=== PATIENT | female | born 1985 | race African-American/Black ===

== ENCOUNTER 2021-09-16 09:04 | Observation (INO) | payer OTHER ==
[~2021-09-16] VITALS: Ht 167.6 cm; Wt 95.3 kg
[2021-09-16] MEDS ORDERED: LABETALOL HCL 200MG TABLET PO SCH (14:00)
[2021-09-16] MEDS ORDERED: RHO(D) IMMUNE GLOBULIN 300 MCG/SYR IM ONE (16:00)
[2021-09-16] MEDS: LABETALOL HCL 200MG TABLET PO SCH (18:09)
[2021-09-16 18:20] LABS: BASOPHILS % 0.2 % (0.0-2.0); HEMATOCRIT. 39.4 % (36.0-48.0); HEMOGLOBIN. 13.2 g/dL (12.0-16.0); LYMPHOCYTES % 22.7 % (20.0-50.0); MEAN CORPUSCULAR HEMOGLOBIN 30.9 pg (28.0-32.0); MEAN CORPUSCULAR VOLUME 92.7 fL (81.0-99.0); MEAN PLATELET VOLUME 10.9 fl (7.4-10.4); MONOCYTES % 7.6 % (2.0-8.0); NEUTROPHILS % 68.5 % (40.0-76.0); PLATELET 209 x1000/uL (130-400); RED BLOOD CELL COUNT 4.25 mill/uL (4.2-5.4); RED CELL DISTRIBUTION WIDTH 13.5 % (11.6-14.6)
[2021-09-16 18:31] LABS: CLARITY URINE CLOUDY (CLEAR); COLOR URINE YELLOW (YELLOW); KETONES URINE NEGATIVE (NEGATIVE); LEUKOCYTE ESTERASE URINE TRACE (NEGATIVE); NITRITE URINE NEGATIVE (NEGATIVE); OCCULT BLOOD URINE NEGATIVE (NEGATIVE); PH URINE 6.5 (4.5-8.0); PROTEIN URINE 2+ (NEGATIVE); SPECIFIC GRAVITY URINE 1.006 (1.005-1.030); UROBILINOGEN URINE 0.2 E.U./dL (0.2-1.0)
[2021-09-16 18:44] LABS: *AMPHETAMINES SCREEN URINE NEGATIVE (NEGATIVE); *BARBITURATES SCREEN URINE NEGATIVE (NEGATIVE); *BENZODIAZEPINES SCREEN URINE NEGATIVE (NEGATIVE); *COCAINE SCREEN URINE NEGATIVE (NEGATIVE); CANNABINOID URINE SCREEN NEGATIVE (NEGATIVE); METHADONE URINE SCREEN NEGATIVE (NEGATIVE); OPIATES URINE SCREEN NEGATIVE (NEGATIVE); PHENCYCLIDINE URINE SCREEN NEGATIVE (NEGATIVE)
[2021-09-16 18:56] LABS: HEPATITIS B SURFACE ANTIGEN NEGATIVE
[2021-09-16 20:44] LABS: INR 0.9; PARTIAL THROMBOPLASTIN TIME 26.8 sec (23.4-31.0); PROTHROMBIN TIME 9.6 sec (9.6-11.0)
[2021-09-17] MEDS: LABETALOL HCL 200MG TABLET PO SCH ×2 (02:03→09:33)
[2021-09-17] MEDS ORDERED: DEXTROSE 50% WATER 50ML SYRINGE IV PRN (07:45)
[2021-09-17] MEDS ORDERED: METFORMIN HCL 500MG TABLET PO SCH (09:00)
[2021-09-17] MEDS ORDERED: BLOOD SUGAR DIAGNOSTIC STRIP TEST SCH (09:00)
[2021-09-17] MEDS ORDERED: INSULIN LISPRO 100 UNITS/ML SUBCUT SCH (09:00)
[2021-09-17] MEDS ORDERED: METF-414 PO (14:44)
[2021-09-17] MEDS ORDERED: LABE200T9 PO (14:44)
== END 2021-09-17 19:18 | disposition home or self-care (01) ==
LOC: 8 EST LDRP 09:04
PROVIDERS: ADMIT Obstetrics & Gynecology; ATTEND Obstetrics & Gynecology
DX: O09.513 Supervision of elderly primigravida, third trimester (principal); O09.33 Supervision of pregnancy with insufficient antenatal care, third trimester; O16.3 Unspecified maternal hypertension, third trimester; O26.893 Other specified pregnancy related conditions, third trimester; R10.9 Unspecified abdominal pain; Z3A.33 33 weeks gestation of pregnancy; Z79.899 Other long term (current) drug therapy
CPT/HCPCS: 36415; 59025; 76805; 76818; 80305; 81003; 82962; 83036; 85025; 85610; 85730; 86592; 86703; 86762; 86850; 86900; 86901; 87340; 96372; G0378; J1815; 99281

== ENCOUNTER 2021-10-16 17:29 | Inpatient (IN) | payer MEDICAID, OTHER ==
[~2021-10-16] VITALS: Ht 154.9 cm; Wt 91.2 kg
[~2021-10-16 17:29] MED LIST: LABE200T9 PO; METF-414 PO
[2021-10-16] MEDS ORDERED: NALOXONE HCL 0.4 MG/ML 1ML VIAL IM PRN (19:15)
[2021-10-16] MEDS ORDERED: CARBOPROST TROMETHAMINE 250 MCG/ML AMPUL IM PRN (19:15)
[2021-10-16] MEDS ORDERED: METHYLERGONOVINE MALEATE 0.2 MG/ML IM PRN (19:15)
[2021-10-16] MEDS ORDERED: RHO(D) IMMUNE GLOBULIN 300 MCG/SYR IM NR (19:15)
[2021-10-16] MEDS ORDERED: OXYTOCIN 30 UNITS/500ML NS PMX 500 ML IV SCH (19:45)
[2021-10-16] MEDS ORDERED: MAGNESIUM 4 G PREMIX 100 ML IV NR (22:00)
[2021-10-16] MEDS ORDERED: DEXTROSE 50% WATER 50ML SYRINGE IV PRN (22:00)
[2021-10-16] MEDS ORDERED: LABETALOL HCL 5MG/ML VIAL 20ML IV PRN ×3 (22:00)
[2021-10-16] MEDS ORDERED: HYDRALAZINE 20MG/ML VIAL IV PRN (22:00)
[2021-10-16 22:29] LABS: BASOPHILS % 0.3 % (0.0-2.0); EOSINOPHILS % 1.5 % (0.0-5.0); HEMATOCRIT. 35.6 % (36.0-48.0); HEMOGLOBIN. 11.8 g/dL (12.0-16.0); LYMPHOCYTES % 17.9 % (20.0-50.0); MEAN CORPUSCULAR HEMOGLOBIN 30.8 pg (28.0-32.0); MEAN CORPUSCULAR VOLUME 93.1 fL (81.0-99.0); MEAN PLATELET VOLUME 10.2 fl (7.4-10.4); MONOCYTES % 7.1 % (2.0-8.0); NEUTROPHILS % 73.2 % (40.0-76.0); PLATELET 266 x1000/uL (130-400); RED BLOOD CELL COUNT 3.83 mill/uL (4.2-5.4); RED CELL DISTRIBUTION WIDTH 13.9 % (11.6-14.6)
[2021-10-16 22:42] LABS: INR 0.9; PARTIAL THROMBOPLASTIN TIME 27.6 sec (23.4-31.0); PROTHROMBIN TIME 9.7 sec (9.6-11.0)
[2021-10-16 23:01] LABS: CHLORIDE 103 mEq/L (98-107)
[2021-10-16 23:06] LABS: HEPATITIS B SURFACE ANTIGEN NEGATIVE
[2021-10-16 23:16] LABS: CLARITY URINE CLEAR (CLEAR); COLOR URINE YELLOW (YELLOW); KETONES URINE NEGATIVE (NEGATIVE); LEUKOCYTE ESTERASE URINE NEGATIVE (NEGATIVE); NITRITE URINE NEGATIVE (NEGATIVE); OCCULT BLOOD URINE TRACE (NEGATIVE); PROTEIN URINE 3+ (NEGATIVE); SPECIFIC GRAVITY URINE 1.017 (1.005-1.030)
[2021-10-16 23:31] LABS: *AMPHETAMINES SCREEN URINE NEGATIVE (NEGATIVE); *BARBITURATES SCREEN URINE NEGATIVE (NEGATIVE); *BENZODIAZEPINES SCREEN URINE NEGATIVE (NEGATIVE); *COCAINE SCREEN URINE NEGATIVE (NEGATIVE); CANNABINOID URINE SCREEN NEGATIVE (NEGATIVE); METHADONE URINE SCREEN NEGATIVE (NEGATIVE); OPIATES URINE SCREEN NEGATIVE (NEGATIVE); PHENCYCLIDINE URINE SCREEN NEGATIVE (NEGATIVE)
[2021-10-16] MEDS: MAGNESIUM 20 G PREMIX (L & D) 500 ML IV SCH (23:42)
[2021-10-16] MEDS: LACTATED RINGERS 1,000 ML IV SCH (23:45)
[2021-10-17] MEDS ORDERED: LABETALOL HCL 5MG/ML VIAL 20ML IV PRN (01:00)
[2021-10-17] MEDS: LACTATED RINGERS 1,000 ML IV SCH ×2 (02:37→14:40)
[2021-10-17] MEDS: INSULIN LISPRO 100 UNITS/ML SUBCUT SCH (06:14)
[2021-10-17] MEDS: LABETALOL HCL 200MG TABLET PO SCH ×2 (06:57→20:00)
[2021-10-17 08:11] LABS: CHLORIDE 102 mEq/L (98-107)
[2021-10-17 08:15] LABS: BASOPHILS % 0.1 % (0.0-2.0); EOSINOPHILS % 1.8 % (0.0-5.0); HEMATOCRIT. 35.2 % (36.0-48.0); HEMOGLOBIN. 11.9 g/dL (12.0-16.0); LYMPHOCYTES % 18.4 % (20.0-50.0); MEAN CORPUSCULAR HEMOGLOBIN 31.2 pg (28.0-32.0); MEAN CORPUSCULAR VOLUME 92.2 fL (81.0-99.0); MEAN PLATELET VOLUME 10.3 fl (7.4-10.4); NEUTROPHILS % 72.7 % (40.0-76.0); PLATELET 271 x1000/uL (130-400); RED BLOOD CELL COUNT 3.81 mill/uL (4.2-5.4); RED CELL DISTRIBUTION WIDTH 13.7 % (11.6-14.6)
[2021-10-17] MEDS ORDERED: BLOOD SUGAR DIAGNOSTIC STRIP TEST SCH (09:00)
[2021-10-17] MEDS ORDERED: CITRIC ACID/SODIUM CITRATE SOLN 30ML UDC PO NR (09:30)
[2021-10-17 10:22] LABS: D-DIMER 9.47 mg/L FEU (<0.50); INR 0.9; PARTIAL THROMBOPLASTIN TIME 26.1 sec (23.4-31.0); PROTHROMBIN TIME 9.3 sec (9.6-11.0)
[2021-10-17 10:36] LABS: CLARITY URINE CLEAR (CLEAR); COLOR URINE YELLOW (YELLOW); KETONES URINE NEGATIVE (NEGATIVE); LEUKOCYTE ESTERASE URINE NEGATIVE (NEGATIVE); NITRITE URINE NEGATIVE (NEGATIVE); OCCULT BLOOD URINE NEGATIVE (NEGATIVE); PH URINE 6.5 (4.5-8.0); PROTEIN URINE 2+ (NEGATIVE); SPECIFIC GRAVITY URINE 1.014 (1.005-1.030); UROBILINOGEN URINE 0.2 E.U./dL (0.2-1.0)
[2021-10-17] MEDS: MAGNESIUM 20 G PREMIX (L & D) 500 ML IV SCH (11:13)
[2021-10-17] MEDS ORDERED: MIDAZOLAM HCL 2 MG/2 ML VIAL ONE ×2 (12:22→12:35)
[2021-10-17] MEDS ORDERED: FENTANYL CITRATE/PF 50MCG/ML 2ML VIAL ONE (12:23)
[2021-10-17] MEDS ORDERED: MORPHINE SULFATE/PF 1MG/ML 10ML AMP ONE (12:23)
[2021-10-17] MEDS ORDERED: CLINDAMYCIN 900 MG PREMIX 50 ML IV ONE (12:26)
[2021-10-17] MEDS ORDERED: PROPOFOL 200MG/20ML VIAL IV ONE (12:29)
[2021-10-17] MEDS ORDERED: OXYTOCIN 10 UNITS/ML 1ML ONE ×3 (13:13→13:31)
[2021-10-17] MEDS ORDERED: ONDANSETRON HCL 4MG/2ML INJ ONE (13:31)
[2021-10-17] MEDS ORDERED: LANOLIN OINT 7GM TUBE TOP PRN ×2 (14:00→14:15)
[2021-10-17] MEDS ORDERED: RHO(D) IMMUNE GLOBULIN 300 MCG/SYR IM PRN ×2 (14:00→14:15)
[2021-10-17] MEDS ORDERED: IBUPROFEN 400MG TABLET PO PRN ×2 (14:00→14:15)
[2021-10-17] MEDS ORDERED: ONDANSETRON HCL 4MG/2ML INJ IV PRN ×2 (14:00→14:15)
[2021-10-17] MEDS ORDERED: DIPHENHYDRAMINE 25MG CAPSULE PO PRN ×2 (14:00→21:00)
[2021-10-17] MEDS ORDERED: OXYTOCIN 30 UNITS/500ML NS PMX 500 ML IV SCH ×2 (14:00→14:15)
[2021-10-17] MEDS ORDERED: BISACODYL 10MG SUPP PR PRN ×2 (14:00→14:15)
[2021-10-17] MEDS ORDERED: IBUPROFEN 800MG TABLET PO PRN (14:00)
[2021-10-17] MEDS ORDERED: MAGNESIUM 20 G PREMIX (L & D) 500 ML IV SCH ×2 (14:00→14:15)
[2021-10-17] MEDS ORDERED: HEMORRHOIDAL SUPP PR PRN ×2 (14:00→14:15)
[2021-10-17] MEDS ORDERED: ACETAMINOPHEN WITH CODEINE 300/30MG TABLET PO PRN (14:00)
[2021-10-17] MEDS ORDERED: EPHEDRINE SULFATE 50MG/ML VIAL ONE (14:03)
[2021-10-17] MEDS ORDERED: HYDROCODONE/ACETAMINOPHEN 5/325MG TABLET PO PRN (14:15)
[2021-10-17] MEDS ORDERED: NALOXONE HCL 0.4MG/ML VIAL IV PRN (14:15)
[2021-10-17] MEDS ORDERED: DEXT 5%/LACTATED RINGERS 1,000 ML IV SCH (14:15)
[2021-10-17] MEDS ORDERED: NALOXONE HCL 0.4 MG/ML 1ML VIAL IV PRN (14:30)
[2021-10-17] MEDS ORDERED: DIPHENHYDRAMINE 50MG/ML VIAL IV PRN (14:30)
[2021-10-17] MEDS ORDERED: BUTORPHANOL TARTRATE 2 MG/ML VIAL IV PRN ×2 (14:30→18:15)
[2021-10-17] MEDS: ALBUTEROL 6.7GM HFA INHALER INH PRN (16:49)
[2021-10-17] MEDS ORDERED: MAGNESIUM/ALUMINUM HYDROXIDE/SIMETHICONE 30ML UDC PO SCH (17:00)
[2021-10-17] MEDS ORDERED: SIMETHICONE 80MG TABLET CHEW PO SCH (17:00)
[2021-10-17 17:50] VITALS: BP 124/86
[2021-10-17] MEDS ORDERED: HYDROMORPHONE HCL/PF 2MG/ML CPJ IV PRN (19:15)
[2021-10-17 19:30] VITALS: BP 169/118
[2021-10-17] MEDS ORDERED: DOCUSATE SODIUM 100MG CAPSULE PO SCH ×2 (21:00)
[2021-10-18] VITALS (7 sets, daily range): BP systolic 81–129; BP diastolic 44–78
[2021-10-18 03:55] LABS: BASOPHILS % 0.3 % (0.0-2.0); EOSINOPHILS % 0.3 % (0.0-5.0); HEMATOCRIT. 33.4 % (36.0-48.0); HEMOGLOBIN. 11.2 g/dL (12.0-16.0); LYMPHOCYTES % 7.7 % (20.0-50.0); MEAN CORPUSCULAR HEMOGLOBIN 30.9 pg (28.0-32.0); MEAN CORPUSCULAR VOLUME 92.5 fL (81.0-99.0); MEAN PLATELET VOLUME 9.6 fl (7.4-10.4); MONOCYTES % 5.6 % (2.0-8.0); NEUTROPHILS % 86.1 % (40.0-76.0); PLATELET 277 x1000/uL (130-400); RED BLOOD CELL COUNT 3.61 mill/uL (4.2-5.4); RED CELL DISTRIBUTION WIDTH 14.4 % (11.6-14.6)
[2021-10-18] MEDS: LABETALOL HCL 200MG TABLET PO SCH ×4 (04:00→20:33)
[2021-10-18] MEDS: FERROUS SULFATE 325MG TABLET PO SCH ×3 (09:00→17:00)
[2021-10-18] MEDS ORDERED: PRENATAL VIT/FE FUMARATE/FA TABLET PO SCH ×2 (09:00)
[2021-10-18] MEDS ORDERED: FERROUS SULFATE 325MG TABLET PO SCH (09:00)
[2021-10-18] MEDS: LACTATED RINGERS 1,000 ML IV SCH (10:13)
[2021-10-18] MEDS: SIMETHICONE 80MG TABLET CHEW PO SCH ×2 (13:00→17:00)
[2021-10-18] MEDS: MAGNESIUM/ALUMINUM HYDROXIDE/SIMETHICONE 30ML UDC PO SCH ×3 (13:00→20:32)
[2021-10-18] MEDS: ALBUTEROL 6.7GM HFA INHALER INH PRN (14:21)
[2021-10-18] MEDS ORDERED: ALBUTEROL (0.5%) 2.5MG/0.5ML NEB HHN PRN (16:15)
[2021-10-18] MEDS: INSULIN LISPRO 100 UNITS/ML SUBCUT SCH (16:30)
[2021-10-18] MEDS: IBUPROFEN 800MG TABLET PO PRN (20:32)
[2021-10-19 04:00] VITALS: BP 131/87
[2021-10-19] MEDS: LABETALOL HCL 200MG TABLET PO SCH (04:00)
[2021-10-19] MEDS: IBUPROFEN 800MG TABLET PO PRN (06:55)
[2021-10-19 08:00] VITALS: BP 119/72
== END 2021-10-19 10:50 | disposition left against medical advice (07) | DRG 540 ==
LOC: 8 EST LDRP 17:29 → OBSVTOIN 17:29 → 8 EST A/PP 10-17 18:08
PROVIDERS: ADMIT Specialist; ATTEND Obstetrics & Gynecology
PROC: 10D00Z1 Extraction of Products of Conception, Low, Open Approach (ICD-10-PCS; principal; 2021-10-17)
DX: O36.4XX0 Maternal care for intrauterine death, not applicable or unspecified (principal); O14.94 Unspecified pre-eclampsia, complicating childbirth; O24.92 Unspecified diabetes mellitus in childbirth; O13.4 Gestational [pregnancy-induced] hypertension without significant proteinuria, complicating childbirth; Z20.822 Contact with and (suspected) exposure to COVID-19; Z53.29 Procedure and treatment not carried out because of patient's decision for other reasons; F41.9 Anxiety disorder, unspecified; O99.344 Other mental disorders complicating childbirth; Z3A.37 37 weeks gestation of pregnancy; Z37.1 Single stillbirth; Z59.00 Homelessness unspecified; Z91.19 Patient's noncompliance with other medical treatment and regimen
CPT/HCPCS: 36415; 76815; 80053; 80305; 81003; 82947; 82962; 83036; 83735; 84550; 85025; 85379; 85384; 86703; 86762; 86850; 86900; 86920; 87340; 87426; 88307; 94640; 99281; G0378; J0595; J1170; J1815; J2250; J2274; J2405; J2704; J3010; J3475; J3490; J7121; J2590

== ENCOUNTER 2021-10-22 04:24 | Emergency (ER) | payer MEDICAID, OTHER ==
[~2021-10-22] VITALS: Ht 165.1 cm; Wt 91.0 kg
[2021-10-22 04:31] VITALS: BP 192/127
== END 2021-10-22 06:46 | disposition left against medical advice (07) ==
LOC: ER 04:24
DX: R10.32 Left lower quadrant pain (principal); R06.02 Shortness of breath; I11.9 Hypertensive heart disease without heart failure; E78.00 Pure hypercholesterolemia, unspecified; J45.909 Unspecified asthma, uncomplicated; F12.10 Cannabis abuse, uncomplicated; Z98.890 Other specified postprocedural states
CPT/HCPCS: 99283